=== PATIENT | female | born 1995 ===

== ENCOUNTER 2019-10-24 14:45 | Emergency (ER) | payer OTHER ==
[~2019-10-24] VITALS: Ht 162.6 cm; Wt 63.5 kg
[2019-10-24] MEDS ORDERED: ZYRTEC10 MG PO (17:43)
== END 2019-10-24 18:46 | disposition home or self-care (01) ==
LOC: ER 14:45
DX: R21 Rash and other nonspecific skin eruption (principal)

== ENCOUNTER 2024-10-05 10:00 | Outpatient (CLI) | payer OTHER ==
[~2024-10-05 10:00] MED LIST: ZYRTEC10 MG PO
== END 2024-10-05 10:02 | disposition home or self-care (01) ==
LOC: PRENATAL 10:00
PROVIDERS: ATTEND Obstetrics & Gynecology Maternal & Fetal Medicine
DX: O44.00 Complete placenta previa NOS or without hemorrhage, unspecified trimester (principal); O36.8199 Decreased fetal movements, unspecified trimester, other fetus; O99.019 Anemia complicating pregnancy, unspecified trimester; Z3A.33 33 weeks gestation of pregnancy

== ENCOUNTER 2024-10-11 09:03 | Outpatient (CLI) | payer OTHER | END 2024-10-11 09:04 | disposition home or self-care (01) | LOC: PRENATAL 09:03 | PROVIDERS: ATTEND Obstetrics & Gynecology Maternal & Fetal Medicine | DX: Z76.1 Encounter for health supervision and care of foundling (principal) ==

== ENCOUNTER → 2024-10-27 07:52 | Outpatient (CLI) | payer OTHER | END | disposition home or self-care (01) | LOC: PRENATAL 07:52 | PROVIDERS: ATTEND Obstetrics & Gynecology Maternal & Fetal Medicine | DX: O26.849 Uterine size-date discrepancy, unspecified trimester (principal); O36.8199 Decreased fetal movements, unspecified trimester, other fetus; O99.019 Anemia complicating pregnancy, unspecified trimester; O32.9XX0 Maternal care for malpresentation of fetus, unspecified, not applicable or unspecified; Z3A.35 35 weeks gestation of pregnancy ==